=== PATIENT | male | born 2000 | race Hispanic/Latino ===

== ENCOUNTER 2023-01-03 21:14 | Emergency (ER) | payer OTHER ==
[2023-01-03] MEDS ORDERED: Ondansetron PF 4 MG/2 ML Vial ONE (22:34)
[2023-01-03] MEDS ORDERED: Pantoprazole 40 MG VIAL ONE (22:45)
[2023-01-03 22:49] LABS: #Basophils 0.2 10x3/uL (0.0-0.2); #Eosinphils 0.4 10x3/uL (0.0-0.5); #Monocytes 0.7 10x3/uL (0.0-1.1); #Neutrophils 4.1 10x3/uL (1.5-8.4); %Basophils 2.5 % (0.0-2.0); %Eosinophils 5.2 % (0.0-6.0); %Lymphocytes 25.2 % (18.0-47.0); %Monocytes 9.5 % (0.0-10.0); %Neutrophils 55.7 % (40.0-75.0); Hemoglobin 17.8 g/dL (13.5-17.5); Mean Corpuscular HGB CONC 36.6 g/dL (32.0-36.0); Mean Corpuscular Volume 84.7 fl (81.2-95.1); Mean Platelet Volume 9.7 fl (7.4-10.4); Platelet Count 235 10x3/uL (150-450); RBC Distribution Width 11.5 % (11.5-14.5); Red Blood Cell (RBC) Count 5.74 10x6/uL (4.32-5.72); White Blood Cell (WBC) Count 7.3 10x3/uL (3.5-10.5)
[2023-01-03 23:03] LABS: ALT (SGPT) 119 U/L (8-55); AST (SGOT) 50 U/L (5-34); Albumin 4.4 g/dL (3.5-5.0); Alkaline Phosphatase 50 U/L (50-130); Anion Gap 13 mmol/L (10-20); BUN (Urea Nitrogen) 7 mg/dL (8.9-20.6); Bilirubin, Total 0.7 mg/dL (0.2-1.2); Calc. Creatinine Clearance 0 mL/min (70-130); Calcium 10.3 mg/dL (7.8-10.44); Carbon Dioxide 29 mmol/L (22-29); Chloride 98 mmol/L (98-107); Estimated GFR 125; Globulin 3.6 g/dL (2.4-3.5); Glucose 202 mg/dL (70-105); Lipase 33 U/L (8-78); Potassium 3.9 mmol/L (3.5-5.1); Sodium 136 mmol/L (136-145)
[2023-01-03] MEDS ORDERED: Lidocaine Viscous Sol 2% 15 ml UD Cup ONE (23:30)
[2023-01-03] MEDS ORDERED: Mag-Al Plus 1200 MG/1200 MG/120 MG/30 ML UDCUP ONE (23:30)
== END 2023-01-04 00:11 | disposition home or self-care (01) ==
LOC: CSHERS 21:14
DX: K92.0 Hematemesis (principal); R04.0 Epistaxis; R10.13 Epigastric pain; E11.9 Type 2 diabetes mellitus without complications; Z79.84 Long term (current) use of oral hypoglycemic drugs
CPT/HCPCS: 80053; 83690; 85025; 96374; 96375; C9113; J2405

== ENCOUNTER 2023-06-06 15:30 | Emergency (ER) | payer BC, OTHER ==
[2023-06-06] MEDS ORDERED: Acetaminophen 500 MG TAB ONE (16:52)
== END 2023-06-06 18:29 | disposition home or self-care (01) ==
LOC: CSHERS 15:30
DX: R51.9 Headache, unspecified (principal); E11.9 Type 2 diabetes mellitus without complications
CPT/HCPCS: 70450